=== PATIENT | female | born 1950 | race Caucasian/White ===

== ENCOUNTER 2016-04-25 08:07 | Emergency (ER) | payer OTHER ==
[2016-04-25 08:24] VITALS: BP 165/80
--- NOTE | 2016-04-25 08:53 | UC ---
Respiratory Complaint HPI - HPI Summary HPI Summary: [address], COUGH, PND, MCMAHAN, MYALGIAS AND CHILLS. NO FEVER, N/V/D. - History of Current Complaint Chief Complaint: UCRespiratory Stated Complaint: CHEST CONGESTION COUGH CHILLS Time Seen by Provider: 04/25/16 08:37 Hx Obtained From: Patient Hx Last Menstrual Period: menapause Onset/Duration: Gradual Onset, Lasting Days, Still Present Timing: Constant Severity Initially: Moderate Severity Currently: Moderate Pain Intensity: 0 Pain Scale Used: 0-10 Numeric Character: Cough: Nonproductive Aggravating Factors: Nothing Alleviating Factors: Nothing Associated Signs And Symptoms: Positive: Chills, Nasal Congestion. Negative: Dyspnea, Fever, Pleuritic Chest Pain, Wheezing, Hemoptysis, Dizziness, Calf Pain , Calf Swelling, Edema, URI, Hoarseness, Sinus Discomfort - Allergies/Home Medications Allergies/Adverse Reactions: Allergies Allergy/AdvReac Type Severity Reaction Status Date / Time No Known Allergies Allergy Verified 07/13/15 12:29 Home Medications: Home Medications Dextromethorphan-Menthol [Delsym Cough+Soothing A 5-5 mg] 1 andrew MT SEE INSTRUCTIONS 04/25/16 [History Confirmed 04/25/16] Dextromethorphan-Phenylephrine [Tylenol Cold Max 10-5-325 mg] 1 tab PO 04/25/16 [History] PMH/Surg Hx/FS Hx/Imm Hx Endocrine History Of: Reports: Thyroid Disease, Hypothyroidism Denies: Diabetes Cardiovascular History Of: Reports: Hypertension Denies: Cardiac Disorders, Myocardial Infarction Respiratory History Of: Denies: COPD, Asthma Cancer History Of: Denies: Breast Cancer - Surgical History Surgical History: Yes Surgery Procedure, Year, and Place: BREAST LUMPECTOMY - Family History Known Family History: Positive: Hypertension, Diabetes - Social History Alcohol Use: Rare Substance Use Type: None Smoking Status (MU): Never Smoked Tobacco Review of Systems Constitutional: Negative ENT: Sore Throat, Nasal Discharge Respiratory: Cough Cardiovascular: Negative Gastrointestinal: Negative Musculoskeletal: Myalgia Neurological: Headache All Other Systems Reviewed And Are Negative: Yes Physical Exam Triage Information Reviewed: Yes Appearance: Well-Appearing, No Pain Distress, Well-Nourished Vital Signs: Initial Vital Signs Temp 99.4 F 04/25/16 08:17 Pulse 85 04/25/16 08:17 Resp 18 04/25/16 08:17 BP 165/80 04/25/16 08:17 Pulse Ox 96 04/25/16 08:17 Vital Signs Reviewed: Yes Eyes: Positive: Conjunctiva Clear ENT: Positive: Hearing grossly normal, Pharyngeal erythema, TMs normal Neck: Positive: Supple, Nontender, No Lymphadenopathy Respiratory: Positive: No respiratory distress, No accessory muscle use, Other: - NOISY BREATH SOUNDS BILATERAL BASES Cardiovascular Exam: Normal Abdomen Description: Positive: Soft Musculoskeletal: Positive: No Edema Neurological: Positive: Alert Psychological: Positive: Age Appropriate Behavior Skin: Negative: rashes UC Diagnostic Evaluation - Laboratory O2 Sat by Pulse Oximetry: 96 Respiratory Course/Dx - Differential Dx/Diagnosis Provider Diagnoses: ACUTE BRONCHITIS Discharge - Discharge Plan Condition: Stable Disposition: HOME Prescriptions: Azithromycin [Azithromycin 500 MG TAB] 500 mg PO DAILY #5 tab guaiFENesin/CODIEN 100MG-10MG* [Robitussin AC 100Mg-10Mg*] 5 - 10 ml PO Q6H PRN #150 ml MDD 40 ML PRN Reason: Cough Patient Education Materials: Acute Bronchitis (ED) Referrals: Jena Wright NP [Primary Care Provider] - If Needed
== END 2016-04-25 09:04 | disposition home or self-care (01) ==
LOC: UCEAST 08:07
DX: J20.9 Acute bronchitis, unspecified (principal)
CPT/HCPCS: 99212; G0463